=== PATIENT | male | born 1970 | race Caucasian/White ===

== ENCOUNTER → 2018-03-09 | Outpatient (CLI) | payer OTHER ==
[~2018-03-09] MED LIST: COZAAR 50 MG TA50 M2 PO; FLEXERIL PO; IBUPROFEN 200200 M1 PO; LIORESAL 10 MG10 MG PO; LUNESTA3 MG PO; NABUMETONE PO; SEROQUEL 25 MG25 M1 PO; TYLENOL325 MG PO
== END ==
LOC: M.RAD 14:18
DX: M54.12 Radiculopathy, cervical region (principal); M48.02 Spinal stenosis, cervical region

== ENCOUNTER → 2019-04-14 | Outpatient (CLI) | payer OTHER | LOC: M.MRI 10:55 | DX: M48.02 Spinal stenosis, cervical region (principal); M12.88 Other specific arthropathies, not elsewhere classified, other specified site ==